=== PATIENT | female | born 1995 | race Caucasian/White ===

== ENCOUNTER → 2021-09-28 01:25 | Outpatient (CLI) | payer BC, SELFPAY ==
[2021-09-28 21:23] LABS: SARS-CoV-2 RNA PCR Negative
== END ==
PROVIDERS: Visit Provider Family Medicine
DX: R68.89 Other general symptoms and signs (principal); Z20.822 Contact with and (suspected) exposure to COVID-19
CPT/HCPCS: C9803; U0003; U0005

== ENCOUNTER → 2023-07-22 09:18 | Outpatient (CLI) | payer BC, SELFPAY ==
--- NOTE | ~2023-07-22 | US_ITS ---
EXAMINATION: US thyroid DATE: 07/22/2023 09:36 INDICATION: Disorder of thyroid. Enlarged left thyroid lobe. TECHNIQUE: Multiple ultrasound images of the thyroid were obtained. COMPARISON: None. FINDINGS: The right thyroid lobe measures 5.3 x 1.1 x 1.0 cm. The left thyroid lobe measures 4.2 x 1.3 x 1.6 c m. In the left thyroid lobe, there is a 3 mm nodule. Thyroid vascularity is normal. IMPRESSION: 1. Small thyroid nodule, likely not clinically significant. No follow-up is needed. Reviewed, dictated and finalized at location E. IMPRESSION: 1. Small thyroid nodule, likely not clinically significant. No follow-up is nee ded.
== END ==
PROVIDERS: PCP Nurse Practitioner; Visit Provider Nurse Practitioner
DX: E04.1 Nontoxic single thyroid nodule (principal)
CPT/HCPCS: 76536

== ENCOUNTER 2024-12-28 12:52 | Outpatient (CLI) | payer OTHER, SELFPAY ==
--- NOTE | ~2024-12-28 | US_ITS ---
EXAMINATION: US OB /maternal detail DATE: 12/30/2024 19:54 CDT INDICATION: Anatomy scan TECHNIQUE: Real-time transabdominal obstetric ultrasound. FINDINGS: There is a single intrauterine gestation in vertex presentation. The placenta is posterior, measuring 4.6 cm to the cervix. The cervix measures 3.12 cm in length. cardiac activity and movement is noted with a heart rate of 161 beats per minute. Anatomic parameters are as follows The bladder is visualized and is unremarkable. A three-vessel cord is present. Cord is clearly seen to insert on the midline of the abdomen. Bilateral kidneys are present without hydronephrosis, but appear hyperechoic for which short-te rm follow-up is needed.. Limited evaluation of the diaphragm for which follow-up examination is needed to confirm its continuity. The cervical, thoracic and lumbar spines are covered in their entirety. choroid plexi are visualized, and unremarkable. Lateral ventricles are visualized . The falx is visualized. The cerebellum is visualized measuring 19.1 mm, and is sonographically unremarkable. The cisterna magna measures 4.7mm in anterior to posterior dimension (normal measurement is 2 to 10 m m). The nuchal fold measures 5.4 mm (greater than 6 mm is considered abnormal). Cine of the four-chamber heart is visualized and is anatomic. Both the right and left ventricular outflow tracts are identified and are unremarkable. Limited views of the arms, hands, legs and feet were performed and appear grossly unremarkable. The upper lips and nose are continuous. The following biometric data were obtained: Biparietal diameter (BPD): 5.1 cm; head circumference (HC): 19 cm; abdominal circumference (AC): 16.7 cm; femur length (FL): 3.8 cm. These measurements are concordant. Estimated weight is 448 g +/- 67 g, which correlates with the 83rd percentile when 05/06/2025 is used as estimated date of delivery. As single measurements, these parameters are each equal to the following estimated gestational ages: BPD: 21 weeks 2 days. HC: 21 weeks 1 days. AC: 21 weeks 5 days. FL: 22 weeks 0 days. estimated gestational age based solely on measurements from this exam is 21 weeks 4 days +/- 1 week 4 days. IMPRESSION: Single intrauterine gestation with an approximate gestational age of 21 weeks and 4 days. Estimated d ue date by ultrasound is 05/06/2025. The bilateral kidneys appear somewhat hyperechoic for which short-term follow-up is needed. Limited evaluation of the diaphragm for which follow-up examination is needed to confirm its continuity. Reviewed, dictated and finalized at location A. IMPRESSION: Single intrauterine gestation with an approximate gestational age of 21 weeks a nd 4 days. Estimated due date by ultrasound is 05/06/2025. The bilateral kidneys appear somewhat hyperechoic for which short-term follow-u p is needed. Limited evaluation of the diaphragm for which follow-up examination is needed to confirm its continuity.
== END 2024-12-28 12:53 | disposition home or self-care (01) ==
LOC: MICIMG 12:53
PROVIDERS: PCP Nurse Practitioner Women's Health; Visit Provider Nurse Practitioner Women's Health
DX: Z36.9 Encounter for antenatal screening, unspecified (principal)
CPT/HCPCS: 76805

== ENCOUNTER 2025-02-08 12:21 | Outpatient (CLI) | payer OTHER, SELFPAY ==
--- NOTE | ~2025-02-08 | US_ITS ---
OB follow-up EXAM EXAMINATION: US OB follow up DATE: 02/10/2025 14:54 CDT INDICATION: Follow-up anatomy scan COMPARISON: 12/28/2024 TECHNIQUE: Real-time transabdominal obstetric ultrasound. FINDINGS: 1 para 1 There is a single intrauterine gestation in vertex presentation. The placenta is posterior, measuring 4.2 cm from the cervix. The cervix measures 3.5 cm in length on the submitted images. cardiac activity and movement is noted with a heart rate of 182 beats per minute. The bilateral kidneys remain hyperechoic. While this might be a normal variant, especially in late , other possible causes (polycystic kidney disease, multicystic dysplastic kidney, chromosomal abnormalities, overgrowth syndromes, as w ell as CMV infection) should be considered. No hydronephrosis is appreciated. Short-term follow-up is recommended. A single static image designated diaphragm is submitted, without detailed designation or adequate e valuation. Repeat evaluation is suggested. The following biometric data were obtained: Biparietal diameter (BPD): 6.9 cm; head circumference (HC): 25.5 cm; abdominal circumference (AC): 23.3 cm; femur length (FL): 4.9 cm. These measurements are concordant. Estimated weight is 1052 g +/- 158 g, which correlates with the 49th percentile when 05/07/2025 is used as estimated date of delivery. As single measurements, these parameters are each equal to the following estimated gestational ages: BPD: 27 weeks 4 days. HC: 27 weeks 5 days. AC: 27 weeks 5 days. FL: 26 weeks 4 days. estimated gestational age based solely on measurements from this exam is 27 weeks 3 days +/- 1 week 6 days. IMPRESSION: Single intrauterine gestation in vertex presentation with cardiac activity identified. The posterior placenta measures 4.2 cm from the cervical os on the submitted images Increased echogenicity of the bilateral kidneys, as detailed above for which short-term follow-up is recommended. Limited evaluation of the diaphragm to confirm continuity for which short-term follow-up is rec ommended. Reviewed, dictated and finalized at location A. IMPRESSION: Single intrauterine gestation in vertex presentation with cardiac activit y identified. The posterior placenta measures 4.2 cm from the cervical os on the submitted im ages Increased echogenicity of the bilateral kidneys, as detailed above for which sh ort-term follow-up is recommended. Limited evaluation of the diaphragm to confirm continuity for which short -term follow-up is recommended.
== END 2025-02-08 12:22 | disposition home or self-care (01) ==
LOC: MICIMG 02-09 12:22
PROVIDERS: PCP Nurse Practitioner Women's Health; Visit Provider Obstetrics & Gynecology Gynecology
DX: Z36.2 Encounter for other antenatal screening follow-up (principal)
CPT/HCPCS: 76816